=== PATIENT | male | born 1945 | race Two or more races ===

== ENCOUNTER 2016-12-11 10:11 | Emergency (ER) | payer MEDICAID, OTHER ==
[~2016-12-11] VITALS: Ht 165.1 cm; Wt 81.6 kg
[~2016-12-11 10:11] MED LIST: PRED50TA PO; VENTOLIN HFA18 GM INH
[2016-12-11 10:43] VITALS: BP 189/95
--- NOTE | 2016-12-11 11:08 | PHYS DOC ---
Past Medical History Past Medical History: Asthma, Diabetes-Type II Past Surgical History: No Surgical History Alcohol Use: Occasionally Drug Use: None Adult General Chief Complaint Chief Complaint: LOWER BACK PAIN OR INJURY HPI HPI Patient is a 71 year old male who presents with lower back pain radiating down RLE. Patient reports pain initially started 1 month ago when he bent over to pick something up; he felt a pop in his back and started having pain in his right lower back radiating down his right leg. This gradually started to improve , until 8 days ago when he bent over again, felt another pop, and exacerbated the pain. He describes stabbing pain. He tried 200 mg of ibuprofen this morning with insufficient relief. He denies any weakness. No loss of bowel or bladder continence. No other acute complaints. Review of Systems Review of Systems Constitutional: Denies fever or chills Eyes: Denies change in visual acuity or eye pain HENT: Denies nasal congestion or sore throat Respiratory: Denies cough or shortness of breath Cardiovascular: Denies chest pain GI: Denies abdominal pain, nausea, vomiting, bloody stools or diarrhea : Denies dysuria or hematuria Musculoskeletal: R low back pain radiating down RLE Integument: Denies rash or skin lesions Neurologic: Denies headache, focal weakness or sensory changes. Denies loss of bowel or bladder continence Current Medications Current Medications Current Medications Medications (Trade) Dose Ordered Sig/Chad Start Time Stop Time Status Last Admin Dose Admin Acetaminophen/ Hydrocodone Bitart (Lortab 5/325) 2 tab 1X ONCE 12/11/16 11:15 12/11/16 11:16 DC 12/11/16 11:27 2 TAB Allergies Allergies Allergies Coded Allergies Type Severity Reaction Last Updated Verified No Known Drug Allergies 04/18/16 No Physical Exam Physical Exam Constitutional: Well developed, well nourished, no acute distress, non-toxic appearance HENT: Normocephalic, atraumatic, bilateral external ears normal Eyes: EOMI, conjunctiva normal, no discharge Neck: Normal range of motion, no stridor Cardiovascular: Heart rate normal, regular rhythm, no murmur Lungs & Thorax: Bilateral breath sounds clear to auscultation Abdomen: Bowel sounds normal, soft, non-distended, no TTP Skin: Warm, dry, no erythema, no rash Back: Minimal R lower back TTP, no skin lesion or deformity noted, no midline TTP, no stepoff Extremities: No obvious deformity, no edema Neurologic: Alert and oriented X 3, strength and sensation to light touch in BLE intact and symmetrical Current Patient Data Vital Signs Vital Signs Date Time Temp Pulse Resp B/P Pulse Ox O2 Delivery O2 Flow Rate FiO2 12/11/16 11:27 18 97 Room Air 12/11/16 10:43 97.9 77 189/95 97.9 EKG EKG [] Radiology/Procedures Radiology/Procedures X-ray Lumbar spine: IMPRESSION: Spondylitic changes. No acute finding seen Course & Med Decision Making Course & Med Decision Making Pertinent Labs and Imaging studies reviewed. (See chart for details) Patient is 71-year-old male who presents with lower back pain. Apparently sciatica, as he has pain radiating down his right leg. No red flag symptoms or findings on physical exam. Will obtain lumbar x-ray to evaluate bony anatomy. Oral pain meds ordered for relief of pain. Imaging results as above. Discussed results with patient, who is feeling a little better at this time. Will discharge home with instructions for close outpatient follow-up, pain meds for pain control, return precautions. Dragon Disclaimer Dragon Disclaimer This electronic medical record was generated, in whole or in part, using a voice recognition dictation system. Departure Departure Impression: Primary Impression: Sciatica Disposition: 01 HOME, SELF-CARE Condition: STABLE Referrals: NON,STAFF (PCP) Patient Instructions: Sciatica Additional Instructions: Thank you for allowing us to provide care today in the Emergency Department. Take the provided medication as directed. Use caution after taking the pain medication as it can make you drowsy. Schedule a follow up appointment with your primary care doctor. Return promptly to the Emergency Department if you develop any new or concerning symptoms. Scripts Naproxen 375 Mg [id number] Mg PO BID PRN PAIN #20 Prov:QUIN ESPINO MD 12/11/16 Hydrocodone/Apap 5-325 ([place] 5-325 Tablet)1 Each Tablet1 Tab PO PRN Q6HRS PRN PAIN #15 TAB Prov:QUIN ESPINO MD 12/11/16 QUIN ESPINO MD Dec 11, 2016 11:08
[2016-12-11] MEDS ORDERED: HYDROCODONE/APAP 5/325MG TABLET. PO ONE (11:15)
--- NOTE | 2016-12-11 12:05 | RAD ---
Indication low back pain for 8 days. No history of trauma. AP and lateral views of the lumbar spine were obtained as well as a coned view targeted to the lumbosacral junction. No acute finding is seen. There is no significant disc space narrowing. Extensive osteophytes are noted at multiple levels. IMPRESSION: Spondylitic changes. No acute finding seen
[2016-12-11] MEDS ORDERED: NAPR375T3 PO (12:22)
[2016-12-11] MEDS ORDERED: HYDR-971 PO (12:22)
== END 2016-12-11 12:50 | disposition home or self-care (01) ==
LOC: ER 10:11
DX: M54.41 Lumbago with sciatica, right side (principal); J45.909 Unspecified asthma, uncomplicated; E11.9 Type 2 diabetes mellitus without complications
CPT/HCPCS: 72100; 99284